=== PATIENT | female | born 1990 | race African-American/Black ===

== ENCOUNTER → 2017-08-16 | Outpatient (CLI) | payer OTHER | END | disposition home or self-care (01) | LOC: US 15:53 | DX: O09.92 Supervision of high risk pregnancy, unspecified, second trimester (principal); O26.842 Uterine size-date discrepancy, second trimester; Z3A.27 27 weeks gestation of pregnancy | CPT/HCPCS: 76805 ==

== ENCOUNTER 2017-11-07 05:40 | Inpatient (IN) | payer OTHER ==
[2017-11-07] MEDS ORDERED: fentaNYL PF VIAL 100 MCG/2 ML VIAL IV ×2 (05:45)
[2017-11-07] MEDS ORDERED: TERBUTALINE 1 MG/ML VIAL. SQ (05:45)
[2017-11-07] MEDS ORDERED: ONDANSETRON PF 4 MG/2 ML VIAL. IV (05:45)
[2017-11-07] MEDS ORDERED: ACETAMINOPHEN 325 MG TABLET. PO ×2 (05:45→19:00)
[2017-11-07] MEDS ORDERED: MAG HYDROX/ALUMINUM HYD/SIMETH 30 ML ORAL.SUSP PO ×2 (05:45→19:00)
[2017-11-07] MEDS ORDERED: OXYTOCIN 30 UNIT/500 ML PREMIX 500 ML IV ×2 (05:45→19:00)
[2017-11-07] MEDS ORDERED: LIDOCAINE 1% PF 30 ML VIAL. INJ (05:45)
[2017-11-07] MEDS ORDERED: 0.9 % SODIUM CHLORIDE 10 ML DISP.SYRIN. IV ×2 (05:45→19:00)
[2017-11-07 06:47] LABS: BILIRUBIN,URINE NEGATIVE (NEG); CLARITY,URINE CLOUDY; COLOR,URINE YELLOW; GLUCOSE,URINE NEGATIVE (NEG); NITRITE,URINE NEGATIVE (NEG); PROTEIN,URINE NEGATIVE (NEG-TRACE); UROBILINOGEN,URINE 0.2 mg/dL (0.2 mg/dL)
[2017-11-07] MEDS: IV RINGERS,LACTATED 1000ML 1,000 ML IV ×4 (06:51→17:23)
[2017-11-07 06:53] LABS: ADD MAN DIFF? NO
[2017-11-07 07:00] LABS: SQUAMOUS EPITHELIAL CELL,UR MANY /LPF
[2017-11-07 07:01] LABS: BACTERIA,URINE MODERATE /HPF (0-FEW); RBC,URINE 0 /HPF (0-2); WBC,URINE 0 /HPF (0-4)
[2017-11-07 07:32] LABS: BASO # 0.1 x10^3/uL (0.0-0.2); BASO % 1 % (0-3); EOS # 0.2 x10^3/uL (0.0-0.7); EOS % 1 % (0-3); HEMATOCRIT 35.6 % (36.0-47.0); HEMOGLOBIN 12.8 g/dL (12.0-15.5); LYMPH % 18 % (24-48); MEAN CORPUSCULAR HEMOGLOBIN 31 pg (25-35); MEAN CORPUSCULAR HGB CONC 36 g/dL (31-37); MEAN CORPUSCULAR VOLUME 86 fL (79-100); MONO # 0.8 x10^3/uL (0.0-1.1); MONO % 7 % (0-9); NEUT # 8.3 x10^3uL (1.8-7.7); NEUT % 73 % (31-73); PLATELET COUNT 328 x10^3/uL (140-400); RED BLOOD COUNT 4.12 x10^6/uL (3.50-5.40); RED CELL DISTRIBUTION WIDTH 15.6 % (11.5-14.5); WHITE BLOOD COUNT 11.4 x10^3/uL (4.0-11.0)
[2017-11-07] MEDS: PENICILLIN G K 5,000,000 UNIT in IV DEXTROSE 5% 100ML 100 ML IV (07:36)
[2017-11-07] MEDS: OXYTOCIN 30 UNIT/500 ML PREMIX 500 ML IV (07:37)
[2017-11-07] MEDS: PENICILLIN G K 2,500,000 UNIT in IV DEXTROSE 5% 50 ML IV ×3 (11:38→18:00)
[2017-11-07 11:55] LABS: HEPATITIS B SURFACE AG Nonreactive (Nonreactive)
[2017-11-07] MEDS ORDERED: L&D EPIDURAL SYRINGE 50 ML EP (12:41)
[2017-11-07] MEDS ORDERED: ROPIVacaine 0.2% IN 0.9%NACL PF 40 MG/20 ML DISP.SYRIN. ×2 (12:41→13:00)
[2017-11-07] MEDS ORDERED: NALOXONE 0.4 MG/ML VIAL. IV (12:45)
[2017-11-07] MEDS ORDERED: ePHEDrine PF IN SALINE 50 MG/5 ML DISP.SYRIN IV (12:45)
[2017-11-07] MEDS: L&D EPIDURAL SYRINGE 50 ML EP ×2 (13:07→16:08)
[2017-11-07] MEDS: fentaNYL PF VIAL 100 MCG/2 ML VIAL EPI (13:08)
[2017-11-07] MEDS: ONDANSETRON PF 4 MG/2 ML VIAL. IV (14:30)
[2017-11-07] MEDS ORDERED: SIMETHICONE 80 MG TAB.CHEW PO (19:00)
[2017-11-07] MEDS ORDERED: diphenhydrAMINE HCL 25 MG CAPSULE PO (19:00)
[2017-11-07] MEDS ORDERED: HYDROCORTISONE 1% TOPICAL OINTMENT 30GM TUBE. TP (19:00)
[2017-11-07] MEDS ORDERED: PHENYLEPH/MINERAL OIL/PETROLAT RECTAL OINTMENT 28GM TUBE. RC (19:00)
[2017-11-07] MEDS ORDERED: MAGNESIUM HYDROXIDE 2,400 MG/30 ML ORAL.SUSP. PO (19:00)
[2017-11-07] MEDS ORDERED: IBUPROFEN 800 MG TABLET. PO (19:00)
[2017-11-07] MEDS ORDERED: MMR per PROTOCOL. MC (19:00)
[2017-11-07] MEDS ORDERED: BENZOCAINE 20% TOPICAL AEROSOL SPRAY 57GM CAN. TP (19:00)
[2017-11-07] MEDS ORDERED: DOCUSATE SODIUM 100 MG CAPSULE. PO (19:00)
[2017-11-07] MEDS ORDERED: ZOLPIDEM 5 MG TABLET. PO (19:00)
[2017-11-08] MEDS: oxyCODONE/APAP 5/325 1 TAB TABLET PO ×2 (02:47→09:19)
[2017-11-08 05:39] LABS: ADD MAN DIFF? NO
[2017-11-08 05:49] LABS: BASO % 0 % (0-3); EOS # 0.2 x10^3/uL (0.0-0.7); EOS % 1 % (0-3); HEMATOCRIT 32.9 % (36.0-47.0); HEMOGLOBIN 11.8 g/dL (12.0-15.5); LYMPH # 2.1 x10^3/uL (1.0-4.8); LYMPH % 15 % (24-48); MEAN CORPUSCULAR HEMOGLOBIN 31 pg (25-35); MEAN CORPUSCULAR HGB CONC 36 g/dL (31-37); MEAN CORPUSCULAR VOLUME 86 fL (79-100); MONO # 1.4 x10^3/uL (0.0-1.1); MONO % 9 % (0-9); NEUT # 10.9 x10^3uL (1.8-7.7); NEUT % 75 % (31-73); PLATELET COUNT 302 x10^3/uL (140-400); RED BLOOD COUNT 3.82 x10^6/uL (3.50-5.40); RED CELL DISTRIBUTION WIDTH 15.1 % (11.5-14.5); WHITE BLOOD COUNT 14.6 x10^3/uL (4.0-11.0)
[2017-11-08] MEDS: FERROUS SULFATE 325 MG TABLET. PO ×2 (07:13→15:50)
[2017-11-08] MEDS: IBUPROFEN 800 MG TABLET. PO ×2 (09:20→15:56)
== END 2017-11-09 15:09 | disposition home or self-care (01) | DRG 775 ==
LOC: 3 SO LND 05:40 → 3 NORTH 23:40
PROVIDERS: Obstetrics & Gynecology
PROC: 10E0XZZ Delivery of Products of Conception, External Approach (ICD-10-PCS; principal; 2017-11-07)
PROC: 10907ZC Drainage of Amniotic Fluid, Therapeutic from Products of Conception, Via Natural or Artificial Opening (ICD-10-PCS; 2017-11-07)
PROC: 3E033VJ Introduction of Other Hormone into Peripheral Vein, Percutaneous Approach (ICD-10-PCS; 2017-11-07)
PROC: 3E0R3BZ Introduction of Anesthetic Agent into Spinal Canal, Percutaneous Approach (ICD-10-PCS; 2017-11-07)
PROC: 00HU33Z Insertion of Infusion Device into Spinal Canal, Percutaneous Approach (ICD-10-PCS; 2017-11-07)
DX: O99.824 Streptococcus B carrier state complicating childbirth (principal); Z3A.39 39 weeks gestation of pregnancy; Z37.0 Single live birth
CPT/HCPCS: 36415; 81001; 85025; 86592; 86850; 86900; 86901; 87086; 87340; G0378; G0379; J2405; J2540; J2590; J2795; J3010; J7120

== ENCOUNTER 2019-08-27 12:17 | Emergency (ER) | payer SELFPAY ==
[~2019-08-27] VITALS: Ht 157.5 cm; Wt 66.7 kg
[~2019-08-27 12:17] MED LIST: HYDR-3164 PO; NAPR-514 PO; PNV1TABL25 PO
[2019-08-27] MEDS ORDERED: ONDANSETRON PF 4 MG/2 ML VIAL. IV ONE (13:00)
[2019-08-27] MEDS ORDERED: IV NORMAL SALINE 1000ML BAG 1,000 ML IV ONE (13:00)
[2019-08-27 13:11] LABS: BASO # 0.1 x10^3/uL (0.0-0.2); BASO % 1 % (0-3); EOS # 0.1 x10^3/uL (0.0-0.7); EOS % 1 % (0-3); HEMATOCRIT 35.5 % (36.0-47.0); HEMOGLOBIN 12.6 g/dL (12.0-15.5); LYMPH # 1.6 x10^3/uL (1.0-4.8); LYMPH % 19 % (24-48); MEAN CORPUSCULAR HEMOGLOBIN 29 pg (25-35); MEAN CORPUSCULAR HGB CONC 36 g/dL (31-37); MEAN CORPUSCULAR VOLUME 82 fL (79-100); MONO # 0.7 x10^3/uL (0.0-1.1); MONO % 8 % (0-9); NEUT # 6.4 x10^3/uL (1.8-7.7); NEUT % 72 % (31-73); PLATELET COUNT 373 x10^3/uL (140-400); RED CELL DISTRIBUTION WIDTH 17.3 % (11.5-14.5); WHITE BLOOD COUNT 8.8 x10^3/uL (4.0-11.0)
[2019-08-27 13:17] LABS: BILIRUBIN,URINE SMALL (NEG); CLARITY,URINE HAZY; COLOR,URINE STRAW; NITRITE,URINE NEGATIVE (NEG); PH,URINE 7.5 (<5.0-8.0); PROTEIN,URINE 30 mg/dL (NEG-TRACE); RBC,URINE OCC /HPF (0-2)
[2019-08-27 13:18] LABS: BACTERIA,URINE MODERATE /HPF (0-FEW); SQUAMOUS EPITHELIAL CELL,UR MANY /LPF
[2019-08-27 13:22] LABS: CALCIUM 8.8 mg/dL (8.5-10.1); CREATININE 0.8 mg/dL (0.6-1.0); GFR 104.1; POTASSIUM 3.5 mmol/L (3.5-5.1)
[2019-08-27 13:28] LABS: ALBUMIN 3.5 g/dL (3.4-5.0); ALBUMIN/GLOBULIN RATIO 0.9 (1.0-1.7); TOTAL BILIRUBIN 0.6 mg/dL (0.2-1.0); TOTAL PROTEIN 7.5 g/dL (6.4-8.2)
--- NOTE | 2019-08-27 13:46 | PHYS DOC ---
Past Medical History Past Medical History: No Pertinent History Past Surgical History: No Surgical History Smoking Status: Never Smoker Alcohol Use: None General Adult EDM: Chief Complaint: ABDOMINAL PAIN HPI: HPI: Patient is a 29-year-old female who presents with lower abdominal discomfort and nausea. She states nausea is been going on for several days worse in the morning causing her to be unable to eat. She denies any fever chills or sweats. She denies any dysuria or gross hematuria. Her last menstrual period was in June. She denies any vaginal bleeding or discharge. She states she was last sexually active in June [] Review of Systems: Review of Systems: Constitutional: Denies fever or chills. [] Eyes: Denies change in visual acuity. [] HENT: Denies nasal congestion or sore throat. [] Respiratory: Denies cough or shortness of breath. [] Cardiovascular: Denies chest pain or edema. [] GI: Per HPI [] : Denies dysuria. [] Musculoskeletal: Denies back pain or joint pain. [] Integument: Denies rash. [] Neurologic: Denies headache, focal weakness or sensory changes. [] Endocrine: Denies polyuria or polydipsia. [] Lymphatic: Denies swollen glands. [] Psychiatric: Anxious [] Heart Score: Risk Factors: Risk Factors: DM, Current or recent (<one month) smoker, HTN, HLP, family history of CAD, obesity. Risk Scores: Score 0 - 3: 2.5% MACE over next 6 weeks - Discharge Home Score 4 - 6: 20.3% MACE over next 6 weeks - Admit for Clinical Observation Score 7 - 10: 72.7% MACE over next 6 weeks - Early Invasive Strategies Current Medications: Current Medications Medications (Trade) Dose Ordered Sig/Jaime Start Time Stop Time Status Last Admin Dose Admin Ondansetron HCl (Zofran) 4 mg 1X ONCE 08/27/19 13:00 08/27/19 13:02 DC 08/27/19 13:28 4 MG Sodium Chloride 1,000 ml @ 1,000 mls/hr 1X ONCE 08/27/19 13:00 08/27/19 13:59 08/27/19 13:28 1,000 MLS/HR Allergies: Allergies: Allergies Coded Allergies Type Severity Reaction Last Updated Verified No Known Drug Allergies 11/07/17 No Physical Exam: PE: Constitutional: Well developed, well nourished, no acute distress, non-toxic appearance. [] HENT: Normocephalic, atraumatic, bilateral external ears normal, oropharynx moist, no oral exudates, nose normal. [] Eyes: PERRLA, EOMI, conjunctiva normal, no discharge. [] Neck: Normal range of motion, no tenderness, supple, no stridor. [] Cardiovascular:Heart rate regular rhythm, no murmur [] Lungs & Thorax: Bilateral breath sounds clear to auscultation [] Abdomen: Bowel sounds normal, soft, no tenderness, no masses, no pulsatile masses. [] Skin: Warm, dry, no erythema, no rash. [] Back: No tenderness, no CVA tenderness. [] Extremities: No tenderness, no cyanosis, no clubbing, ROM intact, no edema. [] Neurologic: Alert and oriented X 3, normal motor function, normal sensory function, no focal deficits noted. [] Psychologic: Anxious. [] Current Patient Data: Labs: Laboratory Tests Test 08/27/19 12:36 08/27/19 12:41 08/27/19 13:04 Urine Collection Type Unknown Urine Color Straw Urine Clarity Hazy Urine pH 7.5 (<5.0-8.0) Urine Specific [place] 1.020 (1.000-1.030) Urine Protein 30 mg/dL (NEG-TRACE) Urine Glucose (UA) Negative mg/dL (NEG) Urine Ketones (Stick) Negative mg/dL (NEG) Urine Blood Negative (NEG) Urine Nitrite Negative (NEG) Urine Bilirubin Small (NEG) Urine Urobilinogen Dipstick 1.0 mg/dL (0.2 mg/dL) Urine Leukocyte Esterase Small (NEG) Urine RBC Occ /HPF (0-2) Urine WBC 11-20 /HPF (0-4) Urine Squamous Epithelial Cells Many /LPF Urine Bacteria Moderate /HPF (0-FEW) Urine Mucus Marked /LPF POC Urine HCG, Qualitative Hcg positive (Negative) White Blood Count 8.8 x10^3/uL (4.0-11.0) Red Blood Count 4.30 x10^6/uL (3.50-5.40) Hemoglobin 12.6 g/dL (12.0-15.5) Hematocrit 35.5 % (36.0-47.0) L Mean Corpuscular Volume 82 fL (79-100) Mean Corpuscular Hemoglobin 29 pg (25-35) Mean Corpuscular Hemoglobin Concent 36 g/dL (31-37) Red Cell Distribution Width 17.3 % (11.5-14.5) H Platelet Count 373 x10^3/uL (140-400) Neutrophils (%) (Auto) 72 % (31-73) Lymphocytes (%) (Auto) 19 % (24-48) L Monocytes (%) (Auto) 8 % (0-9) Eosinophils (%) (Auto) 1 % (0-3) Basophils (%) (Auto) 1 % (0-3) Neutrophils # (Auto) 6.4 x10^3/uL (1.8-7.7) Lymphocytes # (Auto) 1.6 x10^3/uL (1.0-4.8) Monocytes # (Auto) 0.7 x10^3/uL (0.0-1.1) Eosinophils # (Auto) 0.1 x10^3/uL (0.0-0.7) Basophils # (Auto) 0.1 x10^3/uL (0.0-0.2) Sodium Level 137 mmol/L (136-145) Potassium Level 3.5 mmol/L (3.5-5.1) Chloride Level 103 mmol/L (98-107) Carbon Dioxide Level 24 mmol/L (21-32) Anion Gap 10 (6-14) Blood Urea Nitrogen 5 mg/dL (7-20) L Creatinine 0.8 mg/dL (0.6-1.0) Estimated GFR (Cockcroft-Gault) 104.1 BUN/Creatinine Ratio 6 (6-20) Glucose Level 78 mg/dL (70-99) Calcium Level 8.8 mg/dL (8.5-10.1) Total Bilirubin 0.6 mg/dL (0.2-1.0) Aspartate Amino Transferase (AST) 11 U/L (15-37) L Alanine Aminotransferase (ALT) 10 U/L (14-59) L Alkaline Phosphatase 52 U/L (46-116) Total Protein 7.5 g/dL (6.4-8.2) Albumin 3.5 g/dL (3.4-5.0) Albumin/Globulin Ratio 0.9 (1.0-1.7) L Laboratory Tests 08/27/19 13:04 Laboratory Tests 08/27/19 13:04 Vital Signs: Vital Signs Date Time Temp Pulse Resp B/P (MAP) Pulse Ox O2 Delivery O2 Flow Rate FiO2 08/27/19 12:47 98.7 64 16 117/71 (86) 100 Room Air 98.7 EKG: EKG: [] Radiology/Procedures: Radiology/Procedures: []REASON: abd pain with PROCEDURE: PREG 1ST TRIMESTER EXAM: PREG 1ST TRIMESTER 08/27/2019 12:58 PM CLINICAL INDICATION:Abdominal pain with . LMP 06/24/2019. Gestational age by LMP, 19 weeks 1 day COMPARISON:None TECHNIQUE:Grayscale, color, and spectral Doppler images of the pelvis according to first trimester protocol. M-mode imaging was also used. FINDINGS:The uterus measures 8.2 x 6.8 x 8.4 cm. There is a gestational sac containing a single intrauterine . The crown-rump length measures 2.27 cm, consistent with gestational age 9 weeks 0 days. A yolk sac is likely seen. heart rate is 173 bpm. There is a subchorionic hemorrhage along the left side of the gestational sac measuring 2.1 x 1.0 x 1.9 cm. The right ovary measures 2.4 x 2.8 x 2.3 cm. The left ovary measures 5.1 x 2.6 x 4.0 cm and contains a corpus luteum cyst. Both ovaries have normal blood flow. No adnexal mass or free fluid in the pelvis. IMPRESSION: Single living intrauterine with gestational age 9 weeks 0 days based on crown-rump length. heart rate is 173 bpm. There is a small subchorionic hemorrhage. Course & Med Decision Making: Course & Med Decision Making Pertinent Labs and Imaging studies reviewed. (See chart for details) [] Dragon Disclaimer: Dragon Disclaimer: This electronic medical record was generated, in whole or in part, using a voice recognition dictation system. Departure Departure Impression: Primary Impression: Qualified Codes: Z3A.09 - 9 weeks gestation of Additional Impression: UTI (urinary tract infection) during Qualified Codes: O23.41 - Unspecified infection of urinary tract in , first trimester Disposition: 01 HOME, SELF-CARE Condition: STABLE Referrals: NO PCP (PCP) DEAN DAHL MD Call Dr. Dahl to schedule an OB follow-up appointment. Patient Instructions: ABCs of , Abdominal Pain During , Diet - Hyperemesis Gravidarum, Hyperemesis Gravidarum, - Urinary Tract Infection Additional Instructions: Return to the emergency department with any new or concerning symptoms Scripts Ondansetron (ONDANSETRON ODT) 4 Mg Tab.rapdis 1 TAB PO PRN Q6-8HRS for VOMITING, #20 TAB Prov: EDDI SCOTT DO 08/27/19 Nitrofurantoin Monohyd/M-Cryst (MACROBID 100 MG CAPSULE) 100 Mg Capsule 1 CAP PO BID for UTI, #10 CAP Prov: EDDI SCOTT DO 08/27/19 EDDI SCOTT DO August 27, 2019 13:46
[2019-08-27] MEDS ORDERED: ONDA4TAB12 PO (14:04)
[2019-08-27] MEDS ORDERED: NITR100C62 PO (14:04)
[2019-08-27 14:15] VITALS: BP 115/69
== END 2019-08-27 14:24 | disposition home or self-care (01) ==
LOC: ER 12:17
DX: O23.41 Unspecified infection of urinary tract in pregnancy, first trimester (principal); R10.30 Lower abdominal pain, unspecified; R11.0 Nausea; Z3A.09 9 weeks gestation of pregnancy
CPT/HCPCS: 36415; 76801; 80053; 81001; 81025; 84702; 85025; 87086; 96374; 99284; J2405; J7030